=== PATIENT | male | born 1980 | race Two or more races ===

== ENCOUNTER 2019-11-25 15:05 | Emergency (ER) | payer OTHER ==
[~2019-11-25] VITALS: Ht 172.7 cm; Wt 88.9 kg
[2019-11-25 15:14] VITALS: BP 122/79
--- NOTE | 2019-11-25 15:18 | Emergency Room Report ---
History of Present Illness General Chief Complaint: Medical clearance prior to booking Source: Patient Present Illness HPI Disclaimer: Please note that this report is being documented using [employer] technology. This can lead to erroneous entry secondary to incorrect interpretation by the dictating instrument. HPI: 38-year-old male presents in [employer] custody for medical clearance prior to booking. [employer] requesting a COVID-19 test that the patient states he has a positive test from 11/16. He was complaining of nasal congestion and nonproductive cough as well as fevers at that time but states the symptoms have now resolved. He currently denies shortness of breath, chest pain, palpitations , cough, URI symptoms, sore throat or other changes in his health. He has been using Tylenol and other medication he cannot recall. Otherwise feeling well with no other complaints at this time. [employer] states that they need a confirmatory test prior to booking. PMH: Reviewed PSH: Reviewed Allergies: Denied Social Hx: Reviewed Allergies: Coded Allergies: No Known Allergies (Unverified , 11/25/19) Nursing Documentation-PMH Past Medical History: No Stated History Review of Systems All Other Systems: negative except mentioned in HPI Physical Exam General: Awake and alert, no acute distress HEENT: NC/AT. EOMI. patient wearing mask. No submandibular lymphadenopathy or cervical lymphadenopathy. Cardiovascular: RRR. S1 and S2 normal. No murmur appreciated Resp: Normal work of breathing. No cough, wheezing or crackles appreciated Skin: Intact. No abrasions, laceration or rash over the exposed skin MSK: Normal tone and bulk. Moving all extremities. No obvious deformity. Restrained in handcuffs with arms behind his back. Neuro: Awake and alert. Mentating appropriately. Medical Decision Making Diagnostic Impression: Primary Impression: Medical clearance for incarceration Additional Impression: COVID-19 virus detected ER Course 38-year-old male presents in [employer] custody for medical clearance prior to booking. [employer] requesting COVID-19 swab as the patient has a reported positive on 11/16. Currently he denies any symptoms and is well-appearing with stable vital signs. COVID-19 was detected by rapid swab. Patient is otherwise well- appearing no indication for emergent labs or imaging. Discharged in [employer] custody with copy of lab results. Instructed to follow social distancing guidelines for [facility] and local health department. Instructed to return new or worsening symptoms. Disposition: LAW ENFORCEMENT IN CUST Condition: Stable Marshall Hammer MD Nov 25, 2019 15:18
[2019-11-25 15:56] VITALS: BP 121/72
== END 2019-11-25 15:56 ==
LOC: EMR 15:27
DX: U07.1 COVID-19 (principal)
CPT/HCPCS: 99282; U0002